=== PATIENT | female | born 1970 | race Caucasian/White ===

== ENCOUNTER 2017-06-06 16:42 | Emergency (ER) | payer OTHER ==
[2017-06-06 16:48] VITALS: BP 142/83; PULSE 55; TEMP 97.4; BMI 35.2
[2017-06-06] MEDS ORDERED: ACETAMINOPHEN 325 MG TABLET (FP) PO ONE (17:33)
[2017-06-06] MEDS ORDERED: ACETAMINOPHEN 325 MG TABLET (FP) ONE (17:36)
--- NOTE | 2017-06-06 17:40 | PDOC ---
History of Present Illness - General Chief Complaint: Injury Stated Complaint: FALL INJURY Time Seen by Provider: 06/06/17 17:12 History Source: Patient - History of Present Illness Occurred: reports: just prior to arrival Lower Extremity Pain Location: right: ankle, left: knee Method of Injury: Yes: fell, twisted Past History - Past Medical History Allergies/Adverse Reactions: Allergies Allergy/AdvReac Type Severity Reaction Status Date / Time aspirin Allergy Verified 06/06/17 16:48 Home Medications: Ambulatory Orders Amlodipine Besylate [Norvasc -] 2.5 mg PO DAILY 03/12/16 Ofloxacin Otic [Floxin Otic -] 10 drop OT DAILY #10 ml 06/06/17 Anemia: Yes Asthma: No Cancer: No Cardiac Disorders: No CVA: No COPD: No CHF: No Dementia: No Diabetes: No GI Disorders: No Disorders: No HTN: Yes Hypercholesterolemia: No Liver Disease: No Seizures: No Thyroid Disease: No - Surgical History Abdominal Surgery: No Appendectomy: No Cardiac Surgery: No Cholecystectomy: No Lung Surgery: No Neurologic Surgery: No Orthopedic Surgery: No - Psycho/Social/Smoking Cessation Hx Anxiety: No Suicidal Ideation: No Smoking History: Never smoked Have you smoked in the past 12 months: No Hx Alcohol Use: No Drug/Substance Use Hx: No Substance Use Type: None Hx Substance Use Treatment: No Review of Systems - Review of Systems HEENTM: Yes: Ear Pain Musculoskeletal: Yes: Joint Pain, Joint Swelling *Physical Exam - Vital Signs Last Vital Signs Temp Pulse Resp BP Pulse Ox 97.4 F L 55 L 20 142/83 98 06/06/17 16:45 06/06/17 16:45 06/06/17 16:45 06/06/17 16:45 06/06/17 16:45 - Physical Exam General Appearance: Yes: Appropriately Dressed. No: Apparent Distress HEENT: positive: Normal Voice, Pharynx Normal, Other (prurulent debris w/ minimal edema and ttp to L canal, TM intact). negative: Scleral Icterus (R), Scleral Icterus (L) Neck: positive: Supple. negative: Lymphadenopathy (R), Lymphadenopathy (L) Respiratory/Chest: negative: Respiratory Distress Extremity: positive: Tender (minimal ttp to lateral aspect of R ankle, no swelling). negative: Swelling Integumentary: positive: Dry, Warm Neurologic: positive: Fully Oriented, Alert, Normal Mood/Affect ED Treatment Course - RADIOLOGY Radiology Studies Ordered: Category Date Time Status ANKLE & FOOT-RIGHT* [RAD] Stat Radiology 06/06/17 17:33 Ordered Medical Decision Making - Medical Decision Making 06/06/17 17:33 47 yo F, no sig hx, here w/ R ankle pain s/p flal. States her R foot got caught in hole on street today causing twisting injury. States she also suatines abrasion to L knee. Is able to ambulate. Denies any other injuries. Also c/o L ear pain since yesterday. No otorrhea. sore throat, f/c. No trauma. States she swims very frequently See exam Ankle sprain R/o fx -XR -pain meds Ear pain OE on exam -dc w/ abx ear drops 06/06/17 18:44 XR neg for fx. Pt discharged in stable condition 06/06/17 18:46 *DC/Admit/Observation/Transfer Diagnosis at time of Disposition: Ankle sprain Qualifiers: Encounter type: initial encounter Involved ligament of ankle: unspecified ligament Laterality: right Qualified Code(s): S93.401A - Sprain of unspecified ligament of right ankle, initial encounter Otitis externa Qualifiers: Otitis externa type: unspecified type Chronicity: acute Laterality: left Qualified Code(s): H60.502 - Unspecified acute noninfective otitis externa, left ear - Discharge Dispostion Disposition: HOME Condition at time of disposition: Good - Prescriptions Prescriptions: Ofloxacin Otic [Floxin Otic -] 10 drop OT DAILY #10 ml - Referrals Referrals: Haily Weber MD [Primary Care Provider] - - Patient Instructions Printed Discharge Instructions: DI for Otitis Externa, DI for Ankle Sprain Additional Instructions: Your XR was negative for fracture. You most likely have a sprain which can take 1-2 weeks to get better. Take [id number] medications as needed. Take antibiotics as prescribed for your ear infection and return to ER for worsening of symptoms - Post Discharge Activity
== END 2017-06-06 18:48 | disposition home or self-care (01) ==
LOC: JERFT 16:42
DX: S93.401A Sprain of unspecified ligament of right ankle, initial encounter (principal); X58.XXXA Exposure to other specified factors, initial encounter; Y93.89 Activity, other specified; Y92.9 Unspecified place or not applicable; H60.502 Unspecified acute noninfective otitis externa, left ear; I10 Essential (primary) hypertension
CPT/HCPCS: 73610-TC-RT; 73630-TC-RT; 99281-25